=== PATIENT | male | born 1965 | race Caucasian/White ===

== ENCOUNTER 2021-09-21 16:21 | Emergency (ER) | payer SELFPAY ==
[2021-09-21] MEDS ORDERED: Ibuprofen 200 MG TAB ONE (18:23)
== END 2021-09-21 18:30 | disposition home or self-care (01) ==
LOC: CSHERS 16:21
DX: S22.32XA Fracture of one rib, left side, initial encounter for closed fracture (principal); E11.9 Type 2 diabetes mellitus without complications; E78.5 Hyperlipidemia, unspecified; I10 Essential (primary) hypertension; F17.220 Nicotine dependence, chewing tobacco, uncomplicated; W19.XXXA Unspecified fall, initial encounter

== ENCOUNTER 2022-09-30 12:01 | Outpatient (CLI) | payer OTHER, MEDICAID | END 2022-09-30 12:02 | disposition home or self-care (01) | LOC: CSHCT 12:01 | PROVIDERS: ATTEND Neurological Surgery | DX: M54.6 Pain in thoracic spine (principal); M54.12 Radiculopathy, cervical region; M54.50 Low back pain, unspecified; M48.14 Ankylosing hyperostosis [Forestier], thoracic region; N13.30 Unspecified hydronephrosis; M47.816 Spondylosis without myelopathy or radiculopathy, lumbar region; M47.812 Spondylosis without myelopathy or radiculopathy, cervical region | CPT/HCPCS: 72128; 72141; 72148 ==